=== PATIENT | female | born 1930 | race Caucasian/White ===

== ENCOUNTER 2018-04-10 16:40 | Inpatient (IN) | payer MEDICARE ==
[~2018-04-10] VITALS: Ht 157.5 cm; Wt 52.6 kg
[~2018-04-10 16:40] MED LIST changes: -DONEPEZIL HCL10 MG PO; -PRAVASTATIN SOD20 MG PO
--- OUTSIDE RECORDS SUMMARY | 2018-04-10 16:43 | XMS REPORT ---
[facility] Address Unknown Phone Unavailable Care Team Providers Care Rotating Field Assembler Name Role Phone Reanna MARVIN Unavailable Unavailable Problems This patient has no known problems. Allergies, Adverse Reactions, Alerts This patient has no known allergies or adverse reactions. Medications This patient has no known medications. Results Test Description Test Time Test Comments Text Results Atomic Results Result Comments CT LUMBAR SPINE WO 2018-04-10 16:09:00 [place] [address] Patient Name: YEN MEREDITH MR #: [id number] : 1930 Age/Sex: 87/F Req #: [id number] Adm Physician: Ordered by: NIGHAT MARVIN MD Report #: [id number] Location: CT Room/Bed: Procedure: [id number] CT/CT LUMBAR SPINE WO Exam Date: Exam Time: REPORT STATUS: Signed CT LUMBAR SPINE WO HISTORY: Fall COMPARISON: Concurrent r ight hip CT TECHNIQUE: Axial CT images of the lumbar spine were obtained without contrast. Coronal and sagittal reconstructions obtained from the axial data. One or more of the following dose reduction techniques were used: Automated exposure control, adjustment of the mA and/or kV according to patient size, and/or utilization of iterative reconstruction technique. DISCUSSION: Bone demineralization limits evaluation. There are 5 nonrib- bearing lumbar vertebral bodies. Lumbar lordosis is preserved. Lumbar levoscoliosis is centered at L4. There are nondisplaced vertical fractures of the bilateral sacral ala. The fractures involve the bilateral S1 sacral foramina. Associated mildly displaced fracture of the S2 vertebral body is present with mild kyphotic deformity; the fracture involves the posterior elements. No definite additional acute fracture or compression deformity is seen. No gross spinal canal mass is seen. There is mild paraspinal muscle at rophy in the lower lumbar spine. The paravertebral and paraspinal soft tissues are otherwise grossly unremarkable. Advanced multilevel spondylotic changes are present. There are mild degenerative changes in the bilateral sacroiliac joints T12-L1: No gross canal or foraminal stenosis. L1-L2: Mild to moderate left foraminal stenosis due to posterior disc osteophyte complex and facet arthrosis. No gross canal or right foraminal stenosis. L2-L3: Possible mild canal stenosis due to disc bulge and ligamentum flavum thickening. Mild to moderate left foraminal stenosis due to disc bulge and facet arthrosis. No gross right foraminal stenosis. L3-L4: Mild to moderate right and mild left foraminal stenoses due to disc bulge and facet arthrosis. No gross canal stenosis. L4-L5: Grade 1 anterolisthesis of L4 on L5 due to prominent L4-L5 facet arthrosis. Mild canal stenosis due to uncovered disc bulge and ligamentum flavum thickening. Moderate right and mild left foraminal stenoses due to uncovered disc bulge and facet arthrosis. L5-S1: Grade 1 anterolisthesis of L5 on S1 with chronic right L5 pars defect and prominent left facet arthrosis. Mild left foraminal stenosis due to uncovered disc bulge and facet arthrosis. No gross canal or right foraminal stenosis. Mild bibasilar atelectasis and/or scarring is seen in the lungs. Mild aortoiliac calcified atherosclerosis is present. A few small coarse calcifications in the central pelvis are nonspecific. IMPRESSION: 1. Nondisplaced vertical fractures of the bilateral sacral ala. Associated mildly displaced fracture of the S2 vertebral body with involvement of the posterior elements and mild kyphotic deformity. These findings were discussed with Dr. Marvin per report from concurrent right hip CT. 2. No acute osseous abnormalities in the lumbar spine. 3. Advanced multilevel lumbar spondylosis. Signed by: Dr. Canelo Hodgson M.D. on 04/10/2018 4:28 PM Dictated By: CANELO HODGSON MD 27 Transcribed By: HOSSEIN on 04/10/181627 COPY TO: NIGHAT MARVIN MD CT HIP RIGHT WO 2018-04-10 15:59:00 [place] [address] Patient Name: YEN MEREDITH MR #: [id number] : 1930 Age/Sex: 87/F Req #: [id number] Adm Physician: Ordered by: NIGHAT MARVIN MD Report #: [id number] Location: CT Room/Bed: Procedure: [id number] CT/CT HIP RIGHT WO Exam Date: Exam Time: REPORT STATUS: Signed EXAMINATION: CT scan of the right hip without contrast TECHNIQUE: Helical axial CT images of the right hip were obtained from the mid iliac weighing through the midshaft of the femur without intravenous contrast. Coronal and sagittal reformatted images were available for review. COMPARISON: None available CLINICAL HISTORY:Injury to right hip, fall, pain DISCUSSION: Bones: The bones are markedly osteopenic. The right iliac wing, acetabulum, and right superior and inferior pubic rami are intact. The right femoral head, neck, greater and lesser trochanters, and proximal shaft are intact. There is advanced osteoarthrosis of the right hip manifest by large subchondral cysts, joint space loss, and marginal osteophytosis and sclerosis. There are acute, vertically oriented fractures of the right and left sacral ala, partially visualized, with extension to the bilateral first and second foramina. Additionally, there is an associated transverse fracture with a step-off at the level of S1-S2 seen only on sagittal reformatted images (sagittal image 65). Pelvic viscera: The urinary bladder is unremarkable. Uterus is retroverted. Arcuate artery calcifications. Pelvic bowel is grossly unremarkable. Scattered sigmoid diverticula without inflammatory change. Soft tissues: Atherosclerotic vascular calcifications. No gross soft tissue abnormalities. IMPRESSION: Acute, nondisplaced vertical fractures of the right and left sacral ala with foraminal extension, with an associated mildly displaced transverse fracture at the level of S1-S2 as described above. Refer also to lumbar spine CT from 04/10/2018, separately reported. No right hip fracture. Advanced osteoarthrosis of the right hip. Advanced background osteopenia. Findings were discussed by telephone with Dr. Marvin at 4:15 PM on 04/10/2018. The patient was then escorted to the emergency center by radiology staff per his request. Signed by: Dr. Ewa Osuna M.D. on 04/10/2018 4:18 PM Dictated By: EWA OSUNA MD [id number] Transcribed By: HOSSEIN on 04/10/18 1618 COPY TO: NIGHAT MARVIN MD
[2018-04-10] MEDS ORDERED: MORPHINE SULFATE 2 MG/ML SYR IV PRN (16:45)
[2018-04-10 17:31] LABS: BASOPHILS % 0.3 % (0.0-1.0); EOSINOPHILS # (AUTO) 0.1 (0.0-0.4); EOSINOPHILS % 0.7 % (0.0-6.0); HEMATOCRIT 34.8 % (34.2-44.1); HEMOGLOBIN 11.4 g/dL (12.0-16.0); LYMPHOCYTES # (AUTO) 0.9 (1.0-3.2); LYMPHOCYTES % 7.5 % (18.0-39.1); MEAN CORPUSCULAR HEMOGLOBIN 32.9 pg (28-32); MEAN CORPUSCULAR HGB CONC 32.8 g/dL (31-35); MEAN CORPUSCULAR VOLUME 100.3 fL (81-99); MONOCYTES # (AUTO) 1.2 (0.2-0.8); MONOCYTES % 9.8 % (4.4-11.3); NEUTROPHILS # (AUTO) 9.9 (2.1-6.9); NEUTROPHILS % 81.2 % (38.7-80.0); PLATELET COUNT 201 x10e3/uL (140-360); RED BLOOD COUNT 3.47 x10e6/uL (3.6-5.1); RED CELL DISTRIBUTION WIDTH 12.9 % (11.7-14.4)
[2018-04-10 17:50] LABS: ALBUMIN 3.3 g/dL (3.5-5.0); ALBUMIN/GLOBULIN RATIO 1.1 (0.8-2.0); ANION GAP 12.7 mmol/L (8-16); CALCIUM 9.9 mg/dL (8.4-10.2); CREATININE, SERUM 0.92 mg/dL (0.57-1.11); POTASSIUM 3.7 mmol/L (3.5-5.1)
[2018-04-10] MEDS ORDERED: DONEPEZIL HCL10 MG PO (19:34)
[2018-04-10] MEDS ORDERED: PRAVASTATIN SOD20 MG PO (19:34)
[2018-04-10] MEDS: MORPHINE SULFATE INJ 4 MG/ML INJ IV PRN ×2 (19:38→23:43)
[2018-04-10] MEDS: ONDANSETRON HCL INJ 2 MG/ML VIAL IV PRN ×2 (19:38→23:43)
[2018-04-10] MEDS ORDERED: FENTANYL CITRATE/PF 100MCG/2 ML INJ IV PRN (19:45)
[2018-04-10 20:40] VITALS: BP 136/63
[2018-04-11 04:00] VITALS: BP 93/50
[2018-04-11] MEDS: ONDANSETRON HCL INJ 2 MG/ML VIAL IV PRN (05:31)
[2018-04-11] MEDS: MORPHINE SULFATE INJ 4 MG/ML INJ IV PRN ×2 (05:31→13:25)
--- NOTE | 2018-04-11 07:28 | History and Physical ---
Patient is in [facility] 184. Patient admitted for fall with intractable pain to the back. HISTORY OF PRESENTING ILLNESS: This is Ms. Rhona Lara, who sustained a fall about a week prior to admission. Patient came to the nursing care and then, multiple x-rays and x-rays did not reveal any pain. The patient is given Motrin and Tylenol No. 3 and the patient's pain was still intractable, 10/10. Baseline dementia with patient crying in pain and writhing in pain. Came into the office, CT scan was done, which showed a sacral alar fracture and patient admitted for pain control and possible admission to rehab and orthopedic consultation. PAST MEDICAL HISTORY: History of dementia, history of hyperlipidemia, history of hypertension in the past. SURGICAL HISTORY: Noncontributory. SOCIAL HISTORY: Lives with the daughter, who is the primary manager e learning. REVIEW OF SYSTEMS: No chest pain, no shortness of breath, no nausea, vomiting, diarrhea, no constipation, no rectal bleeding, no hematochezia, no hematemesis. Positive for lower lumbar pain and no diplopia and no blurry vision. Positive for memory loss. EXAMINATION VITAL SIGNS: Temperature is 97.7, pulse of 52, blood pressure is 93/50. HEENT: Normocephalic, atraumatic. GENERAL: Patient is alert and oriented x1. Patient is aware of her name, but not aware of where she is at that time. CVS: S1, S2 normal. Regular rate and rhythm. ABDOMEN: Nontender, nondistended. EXTREMITIES: No clubbing, no cyanosis, no edema. LUNGS: Clear to auscultation bilaterally. BACK: Patient has tenderness on the lumbar spine and also, on the sacrum positive. Patient cannot put pressure or weight-bear secondary to pain. Patient was on wheelchair. IMAGING STUDIES: Hip CT with nondisplaced vertical pressure of the right and left sacral ala with foraminal extension with an associated mildly displaced transverse fracture at the level of S1-S2. No right hip fracture. Advanced osteoarthritis of the right hip. Advanced osteopenia. Patient's lumbar spine CT shows [id number] left foraminal stenosis in the L1-L2 mild canal stenosis in the L2-L3, [id number] foraminal stenosis in L3 and L4 and L4 and L5 with L4-L5 facet arthrosis and L5-S1 shows mild left foraminal stenosis. Again, a nondisplaced fracture of the bilateral sacral ala was seen too. Chest x-ray was normal. Brain CT showed mild chronic microvascular changes and generalized pain and volume loss, which is associated with dementia. ASSESSMENT 1. Debility. 2. Status post fall. 3. Nonweightbearing status. 4. Intractable pain. 5. Hypertension. 6. Hyperlipidemia. 7. Dementia. Given the patient's mental status and the pain control, the patient will be kept in the hospital. A consult with Dr. Duvall has been done. Will probably send the patient to the residential for pain control or SNF and physical therapy for pain control. For further information, look in the chart. Will await Dr. Duvall's consultation and continue with home medications. Job#: [id number] CQ
[2018-04-11] MEDS: LIDOCAINE 5% PATCH TP SCH (08:27)
[2018-04-11 08:29] VITALS: BP 120/58
[2018-04-11 08:30] VITALS: BP 120/58
[2018-04-11 11:54] VITALS: BP 101/56
[2018-04-11 16:32] VITALS: BP 120/58
[2018-04-11] MEDS: ENOXAPARIN 30 MG/0.3 ML SYR SC SCH (17:04)
[2018-04-11] MEDS ORDERED: HYDROMORPHONE 2MG/ML 2 MG/ML ML IV PRN (18:45)
[2018-04-11] MEDS ORDERED: HYDROMORPHONE 1MG/1ML INJ IV PRN (18:45)
[2018-04-11] MEDS: DIPHENHYDRAMINE HCL 25 MG CAP PO PRN (19:12)
[2018-04-11 20:00] VITALS: BP 122/57
[2018-04-12] VITALS (7 sets, daily range): BP systolic 116–157; BP diastolic 56–61
[2018-04-12] MEDS: ONDANSETRON HCL INJ 2 MG/ML VIAL IV PRN (04:00)
[2018-04-12] MEDS: DIPHENHYDRAMINE HCL 25 MG CAP PO PRN (04:15)
[2018-04-12 05:46] LABS: BASOPHILS # (AUTO) 0.1 (0.0-0.1); BASOPHILS % 0.8 % (0.0-1.0); EOSINOPHILS # (AUTO) 0.3 (0.0-0.4); EOSINOPHILS % 4.4 % (0.0-6.0); HEMOGLOBIN 11.2 g/dL (12.0-16.0); LYMPHOCYTES % 14.4 % (18.0-39.1); MEAN CORPUSCULAR HEMOGLOBIN 32.5 pg (28-32); MEAN CORPUSCULAR VOLUME 101.4 fL (81-99); MONOCYTES # (AUTO) 0.9 (0.2-0.8); MONOCYTES % 13.7 % (4.4-11.3); NEUTROPHILS # (AUTO) 4.4 (2.1-6.9); NEUTROPHILS % 65.6 % (38.7-80.0); PLATELET COUNT 212 x10e3/uL (140-360); RED BLOOD COUNT 3.45 x10e6/uL (3.6-5.1); RED CELL DISTRIBUTION WIDTH 12.9 % (11.7-14.4)
[2018-04-12 06:10] LABS: ANION GAP 12.8 mmol/L (8-16); CALCIUM 8.7 mg/dL (8.4-10.2); CREATININE, SERUM 0.98 mg/dL (0.57-1.11); POTASSIUM 3.8 mmol/L (3.5-5.1)
[2018-04-12] MEDS: LIDOCAINE 5% PATCH TP SCH (09:32)
[2018-04-12] MEDS: PRAVASTATIN 20 MG TAB PO SCH (09:32)
[2018-04-12] MEDS: ACETAMINOPHEN 1000 MG/100 ML IV PRN ×2 (10:55→17:55)
[2018-04-12] MEDS: ENOXAPARIN 30 MG/0.3 ML SYR SC SCH (17:25)
[2018-04-12] MEDS: DONEPEZIL HCL 5 MG TAB PO SCH (22:13)
[2018-04-13] VITALS (7 sets, daily range): BP systolic 134–168; BP diastolic 59–72
[2018-04-13] MEDS: ACETAMINOPHEN 1000 MG/100 ML IV PRN ×2 (00:30→16:39)
[2018-04-13] MEDS: PRAVASTATIN 20 MG TAB PO SCH (09:05)
[2018-04-13] MEDS: LIDOCAINE 5% PATCH TP SCH (09:05)
--- NOTE | 2018-04-13 11:04 | Consultation ---
DATE OF CONSULTATION: April 13, 2018 CHIEF COMPLAINT: Low back pain. HISTORY OF PRESENT ILLNESS: This patient is a pleasant 87-year-old female with a significant history of dementia who reportedly fell from a standing height several days ago. She came into the hospital with intractable low back pain. CT scan was done of her lumbar spine which showed nondisplaced bilateral sacral ala fractures and thus Orthopedics was consulted. PAST MEDICAL HISTORY: See H and P. SOCIAL HISTORY: The patient reportedly remains independent of her ADLs. She lives with her daughter. She has history of dementia. She denies any smoking or drinking. PHYSICAL EXAMINATION GENERAL: This is a pleasant elderly female, in no apparent distress. She is awake and alert. She is oriented to name and date of only. She shows signs of dementia. BACK: On gross inspection of her low back and pelvic area it shows no bruising or skin changes. She has some mild tenderness to palpation around both SI joints. She has diminished and uncomfortable range of motion in both hips. Distal motor and sensory exams in both lower extremities are grossly normal. IMAGING: Lumbar and hip CTs were reviewed and show a nondisplaced bilateral sacral ala fractures. She has advanced arthritic changes in both hips. She has moderate spondylitic changes in her lumbar spine. ASSESSMENT AND PLAN: This is an 87-year-old female with bilateral sacral ala fractures. The findings were discussed with the patient and her daughter. The treatment is mobilization with physical therapy. She can be weightbearing as tolerated with the walker. She will benefit from retirement given her level of dementia. RECOMMENDATION: Repeat x-rays in roughly 10 to 14 days in my office. I answered all her daughter's questions and provided my contact information. No further inpatient orthopedic intervention is anticipated at this time. Thank you for the consultation. Dictated By: Saran Hinojosa PA-C Job#: [id number] STEPHAN
[2018-04-13] MEDS: ENOXAPARIN 30 MG/0.3 ML SYR SC SCH (16:38)
[2018-04-13] MEDS: DONEPEZIL HCL 5 MG TAB PO SCH (20:58)
[2018-04-14] VITALS (8 sets, daily range): BP systolic 121–160; BP diastolic 65–88
[2018-04-14] MEDS: DONEPEZIL HCL 5 MG TAB PO SCH ×2 (00:53→21:03)
[2018-04-14] MEDS: ACETAMINOPHEN 1000 MG/100 ML IV PRN ×3 (01:15→22:05)
--- NOTE | 2018-04-14 07:26 | Progress Note ---
DATE: Patient is an 87-year-old female with a history of fall sustaining a sacral alar fracture. The patient is currently still in pain. No other complaints. The patient also has dementia and daughter is at the bedside. PHYSICAL EXAMINATION VITAL SIGNS: Temperature is 97.4, pulse of 58, blood pressure 130/60, respirations of 18, SpO2 of 98%. GENERAL: The patient is alert and oriented times 1. LUNGS: Clear to auscultation bilaterally. CARDIOVASCULAR: S1 and S2 normal. ABDOMEN: Positive for good bowel sounds. NEUROLOGIC: Nonfocal except for her dementia. BACK: There is tenderness in the sacral area. EXTREMITIES: No clubbing. No cyanosis. No edema. MEDICATIONS: She is on lidocaine, pravastatin, benazepril, and diphenhydramine as needed. LAB VALUES: Hemoglobin of 11.2, hematocrit 35. Liver enzymes are normal. BUN and creatinine 15 and 0.98. ASSESSMENT 1. Sacral alar fracture. 2. Coccygeal fracture: The patient needs therapy and will be transferred to SNF. 3. Dementia: Continue benazepril. 4. Anemia, stable: Will continue monitoring the patient. Further recommendations per clinical course. The patient needs extensive therapy. Discussed the case with the daughter in detail. Job#: [id number] EDUARDA
[2018-04-14] MEDS: LIDOCAINE 5% PATCH TP SCH (09:23)
[2018-04-14] MEDS: PRAVASTATIN 20 MG TAB PO SCH (09:23)
[2018-04-14] MEDS: BISACODYL 5 MG TAB EC PO PRN ×2 (09:23→21:03)
[2018-04-14] MEDS: ENOXAPARIN 30 MG/0.3 ML SYR SC SCH (16:43)
[2018-04-14] MEDS ORDERED: SODIUM CHLORIDE 0.9% 250ML 250 ML ONE (22:00)
[2018-04-15] VITALS (7 sets, daily range): BP systolic 113–158; BP diastolic 55–75
[2018-04-15 06:00] LABS: ANION GAP 13.7 mmol/L (8-16); BLOOD UREA NITROGEN 12 mg/dL (7-26); BUN/CREATININE RATIO 14 (6-25); CALCIUM 9.1 mg/dL (8.4-10.2); CARBON DIOXIDE 26 mmol/L (22-29); CHLORIDE 105 mmol/L (98-107); CREATININE, SERUM 0.87 mg/dL (0.57-1.11); EST GLOMERULAR FILTRATION RATE > 60 ML/MIN (60-); GLUCOSE 90 mg/dL (74-118); POTASSIUM 3.7 mmol/L (3.5-5.1); SODIUM 141 mmol/L (136-145)
--- NOTE | 2018-04-15 07:31 | Progress Note ---
DATE: Patient is confused. Has baseline dementia. Grandson by her bedside. OBJECTIVE VITAL SIGNS: Temperature is 97.6, pulse of 73, respirations of 18, blood pressure is 140/66, pulse ox 95%. HEENT: Normocephalic and atraumatic. Pupils are reactive to light and accommodation. CV: S1 and S2 regular. ABDOMEN: Nontender and nondistended. Tenderness in the sacral area. EXTREMITIES: No clubbing. No cyanosis. No edema. Sodium 141, potassium is 4.7, BUN of 12, creatinine of 0.87. MEDICATIONS: The patient is restarted on her home medications, including donepezil for dementia. The patient is on lidocaine patch and also on Zofran. ASSESSMENT 1. Sacral alar fracture. 2. Dementia. 3. Anemia. 4. Debility. The patient is to be transferred to a fpc facility starting today. Will continue on her medications for dementia. Anemia stable. Will continue monitoring the patient. For the sacral fracture, she will need physical therapy. Continue pain management as needed. Job#: [id number] EDUARDA
[2018-04-15] MEDS: ACETAMINOPHEN 1000 MG/100 ML IV PRN (07:34)
[2018-04-15] MEDS: PRAVASTATIN 20 MG TAB PO SCH (09:16)
[2018-04-15] MEDS: LIDOCAINE 5% PATCH TP SCH (09:16)
[2018-04-15] MEDS: ENOXAPARIN 30 MG/0.3 ML SYR SC SCH (17:02)
== END 2018-04-15 20:25 | DRG 552 ==
LOC: ER 16:40 → ERHOLD 16:48 → IMCU 20:13 → OBSVTOIN 04-11 13:46 → MED/SURG3 04-12 18:48
PROVIDERS: ADMIT Family Medicine; ATTEND Family Medicine
DX: S32.10XA Unspecified fracture of sacrum, initial encounter for closed fracture (principal); F03.90 Unspecified dementia, unspecified severity, without behavioral disturbance, psychotic disturbance, mood disturbance, and anxiety; S32.2XXA Fracture of coccyx, initial encounter for closed fracture; W19.XXXA Unspecified fall, initial encounter; Z91.81 History of falling; Y92.9 Unspecified place or not applicable; I10 Essential (primary) hypertension; E78.5 Hyperlipidemia, unspecified; D64.9 Anemia, unspecified; G89.11 Acute pain due to trauma; W01.0XXA Fall on same level from slipping, tripping and stumbling without subsequent striking against object, initial encounter; M48.061 Spinal stenosis, lumbar region without neurogenic claudication
CPT/HCPCS: 36415; 72131; 80048; 80053; 85025; 97139; 99284; G0378; J1650; J2270; J2405; J7050

== ENCOUNTER → 2018-04-10 | Outpatient (CLI) | payer MEDICARE ==
[~2018-04-10] MED LIST: ASPIRIN; CALTRATE 600 W1 EACH PO; DONEPEZIL HCL10 MG PO; GINKGO BILOBA PO; PRAVASTATIN SOD20 MG PO; VITAMIN D3 PO
--- NOTE | 2018-04-10 16:21 | Diagnostic Imaging Report ---
EXAMINATION: CT scan of the right hip without contrast TECHNIQUE: Helical axial CT images of the right hip were obtained from the mid iliac weighing through the midshaft of the femur without intravenous contrast. Coronal and sagittal reformatted images were available for review. COMPARISON: None available CLINICAL HISTORY:Injury to right hip, fall, pain DISCUSSION: Bones: The bones are markedly osteopenic. The right iliac wing, acetabulum, and right superior and inferior pubic rami are intact. The right femoral head, neck, greater and lesser trochanters, and proximal shaft are intact. There is advanced osteoarthrosis of the right hip manifest by large subchondral cysts, joint space loss, and marginal osteophytosis and sclerosis. There are acute, vertically oriented fractures of the right and left sacral ala, partially visualized, with extension to the bilateral first and second foramina. Additionally, there is an associated transverse fracture with a step-off at the level of S1-S2 seen only on sagittal reformatted images (sagittal image 65). Pelvic viscera: The urinary bladder is unremarkable. Uterus is retroverted. Arcuate artery calcifications. Pelvic bowel is grossly unremarkable. Scattered sigmoid diverticula without inflammatory change. Soft tissues: Atherosclerotic vascular calcifications. No gross soft tissue abnormalities. IMPRESSION: Acute, nondisplaced vertical fractures of the right and left sacral ala with foraminal extension, with an associated mildly displaced transverse fracture at the level of S1-S2 as described above. Refer also to lumbar spine CT from 04/10/2018, separately reported. No right hip fracture. Advanced osteoarthrosis of the right hip. Advanced background osteopenia. Findings were discussed by telephone with Dr. Goodman at 4:15 PM on 04/10/2018. The patient was then escorted to the emergency center by radiology staff per his request. Signed by: Dr. Costa Hidalgo M.D. on 04/10/2018 4:18 PM
--- NOTE | 2018-04-10 16:32 | Diagnostic Imaging Report ---
CT LUMBAR SPINE WO HISTORY: Fall COMPARISON: Concurrent right hip CT TECHNIQUE: Axial CT images of the lumbar spine were obtained without contrast. Coronal and sagittal reconstructions obtained from the axial data. One or more of the following dose reduction techniques were used: Automated exposure control, adjustment of the mA and/or kV according to patient size, and/or utilization of iterative reconstruction technique. DISCUSSION: Bone demineralization limits evaluation. There are 5 nonrib-bearing lumbar vertebral bodies. Lumbar lordosis is preserved. Lumbar levoscoliosis is centered at L4. There are nondisplaced vertical fractures of the bilateral sacral ala. The fractures involve the bilateral S1 sacral foramina. Associated mildly displaced fracture of the S2 vertebral body is present with mild kyphotic deformity; the fracture involves the posterior elements. No definite additional acute fracture or compression deformity is seen. No gross spinal canal mass is seen. There is mild paraspinal muscle atrophy in the lower lumbar spine. The paravertebral and paraspinal soft tissues are otherwise grossly unremarkable. Advanced multilevel spondylotic changes are present. There are mild degenerative changes in the bilateral sacroiliac joints T12-L1: No gross canal or foraminal stenosis. L1-L2: Mild to moderate left foraminal stenosis due to posterior disc osteophyte complex and facet arthrosis. No gross canal or right foraminal stenosis. L2-L3: Possible mild canal stenosis due to disc bulge and ligamentum flavum thickening. Mild to moderate left foraminal stenosis due to disc bulge and facet arthrosis. No gross right foraminal stenosis. L3-L4: Mild to moderate right and mild left foraminal stenoses due to disc bulge and facet arthrosis. No gross canal stenosis. L4-L5: Grade 1 anterolisthesis of L4 on L5 due to prominent L4-L5 facet arthrosis. Mild canal stenosis due to uncovered disc bulge and ligamentum flavum thickening. Moderate right and mild left foraminal stenoses due to uncovered disc bulge and facet arthrosis. L5-S1: Grade 1 anterolisthesis of L5 on S1 with chronic right L5 pars defect and prominent left facet arthrosis. Mild left foraminal stenosis due to uncovered disc bulge and facet arthrosis. No gross canal or right foraminal stenosis. Mild bibasilar atelectasis and/or scarring is seen in the lungs. Mild aortoiliac calcified atherosclerosis is present. A few small coarse calcifications in the central pelvis are nonspecific. IMPRESSION: 1. Nondisplaced vertical fractures of the bilateral sacral ala. Associated mildly displaced fracture of the S2 vertebral body with involvement of the posterior elements and mild kyphotic deformity. These findings were discussed with Dr. Goodman per report from concurrent right hip CT. 2. No acute osseous abnormalities in the lumbar spine. 3. Advanced multilevel lumbar spondylosis. Signed by: Dr. Canelo Hodgson M.D. on 04/10/2018 4:28 PM
== END ==
LOC: CT 15:09
PROVIDERS: ATTEND Family Medicine
DX: S79.911A Unspecified injury of right hip, initial encounter (principal); M47.896 Other spondylosis, lumbar region; M53.3 Sacrococcygeal disorders, not elsewhere classified
CPT/HCPCS: 72131